=== PATIENT | female | born 1960 | race Caucasian/White ===

== ENCOUNTER 2024-07-08 07:21 | Day surgery (SDC) | payer BC ==
[~2024-07-08] VITALS: Ht 157.5 cm; Wt 56.2 kg
[2024-07-08] MEDS ORDERED: fentaNYL CITRATE/PF 100 MCG/2 ML AMP ONE (07:38)
[2024-07-08] MEDS ORDERED: MIDAZOLAM HCL 5 MG/5 ML VIAL ONE (07:39)
[2024-07-08 12:07] VITALS: O2SAT 100
[2024-07-08 14:22] VITALS: BP_SYST 120; PULSE 89; RESP 10
== END 2024-07-08 10:25 | disposition home or self-care (01) ==
LOC: SDS 07:21
PROVIDERS: ATTEND Internal Medicine
DX: R19.4 Change in bowel habit (principal); K63.5 Polyp of colon; K63.89 Other specified diseases of intestine; K57.30 Diverticulosis of large intestine without perforation or abscess without bleeding; K64.8 Other hemorrhoids; K21.9 Gastro-esophageal reflux disease without esophagitis; E78.5 Hyperlipidemia, unspecified; E07.89 Other specified disorders of thyroid; Z90.49 Acquired absence of other specified parts of digestive tract; Z79.899 Other long term (current) drug therapy
CPT/HCPCS: 45385; 88305; 99152; G0378; J2250; J3010